=== PATIENT | female | born 1975 | race Caucasian/White ===

== ENCOUNTER 2018-08-06 20:02 | Inpatient (IN) | payer MEDICAID ==
[~2018-08-06] VITALS: Ht 154.9 cm; Wt 69.6 kg
[2018-08-06 20:26] VITALS: Ht 154.9 cm; Wt 69.6 kg
--- NOTE | 2018-08-06 21:06 | NUR ---
PT CAME IN FOR RLQ ABDOMINAL PAIN X 5 DAYS THAT RADIATES TO RIGHT LOWER BACK AND RIGHT PELIVIC REGION. DENIES N/V/D. ABDOMEN SOFT ROUND, TENDER TO PALPATION IN RLQ. PT AWAKE, ALERT, RESPIRATIONS EVEN AND UNLABORED. SAFETY PRECAUTIONS IN PLACE.
--- NOTE | 2018-08-06 21:18 | NUR ---
PT PROVIDED WITH URINE SPECIMEN CUP AND VERBALIZED FOR NEED TO PROVIDE URINE SAMPLE, PATIENT VERBALIZES UNDERSTANDING AND AMBULATED TO RESTROOM TO PROVIDE URINE.
--- NOTE | 2018-08-06 21:35 | NUR ---
URINE DIP SHOWED +3 BLOOD, PATIENT STATES SHE IS ON HER PERIOD, DR. CLARK MADE AWARE OF ABOVE
--- NOTE | 2018-08-06 21:59 | NUR ---
MEDICATED PER EMAR
[2018-08-06 22:07] LABS: UA SPECIFIC GRAVITY >=1.030 (1.005-1.035); microscopic required? YES; urine erythrocyte 3+ (NEGATIVE)
--- NOTE | 2018-08-06 22:28 | NUR ---
PT TAKEN FOR CT SCAN BY TECH
--- NOTE | 2018-08-06 23:15 | NUR ---
PT REMAINS FREE FROM S/S OF DISTRESS. AWAKE, ALERT, RESPIRATIONS EVEN AND UNLABORED. SAFETY PRECAUTIONS IN PLACE
--- NOTE | 2018-08-06 23:44 | NUR ---
ROTO MIXER OPERATOR AT BEDSIDE
[2018-08-07 00:06] LABS: BASOPHIL % 0.5 % (0-2); CARBON DIOXIDE 28.8 mmol/L (21-32); CHLORIDE SERUM 103 mmol/L (98-107); CREATININE SERUM 0.8 mg/dL (0.6-1.0); GFR1 > 60 mL/min; GLUCOSE SERUM 99 mg/dL (74-106); PLATELET COUNT 289 x10^3mcL (130-400); POTASSIUM SERUM 3.9 mmol/L (3.5-5.1); SODIUM SERUM 141 mmol/L (136-145)
[2018-08-07 00:07] LABS: ALBUMIN 3.8 g/dL (3.4-5.0); ALKALINE PHOSPHATASE 104 U/L (46-116); ALT/SGPT 28 U/L (14-59); AMYLASE 91 U/L (25-115); AST/SGOT 17 U/L (15-37); BILIRUBIN TOTAL 0.4 mg/dL (0.20-1.00); LIPASE 206 IU/L (73-393); RED CELL DISTRIBUTION WIDTH 14.8 % (11.5-14.5); TOTAL PROTEIN, SERUM 7.9 g/dL (6.4-8.2)
--- NOTE | 2018-08-07 00:18 | NUR ---
STATUS REMAINS UNCHANGED. RESPIRATIONS EVEN AND UNLABORED. AWAKE, ALERT. SAFETY PRECAUTIONS IN PLACE
--- NOTE | 2018-08-07 01:12 | NUR ---
PT LAYING IN BED. AWAKE, ALERT, RESPIRATIONS EVEN AND UNLABORED. SAFETY PRECAUTIONS IN PLACE
--- NOTE | 2018-08-07 02:28 | NUR ---
PER PROJECT ASSOCIATE BISMARK CERDA COMPLETED ORAL CONTRAST AND WILL BE SCANNED APPROXIMATELY 0400
--- NOTE | 2018-08-07 04:05 | NUR ---
PT TAKEN FOR CT SCAN BY LINUX ADMIN ENGINEER
--- NOTE | 2018-08-07 04:24 | NUR ---
STATUS REMAINS UNCHANGED. RESPIRATIONS EVEN AND UNLABORED. SAFETY PRECAUTIONS IN PLACE
--- NOTE | 2018-08-07 05:11 | NUR ---
DECORATOR MANNEQUIN AT BEDSIDE
--- NOTE | 2018-08-07 07:04 | NUR ---
RECEIEVED REPORT FROM RAQUEL LEE FOR FURTHER CARE OF PATIENT.
--- NOTE | 2018-08-07 07:08 | NUR ---
REPORT GIVEN TO RADHA GARCÍA, ALL QUESTIONS AND CONCERNS WERE ADDRESSED
--- NOTE | 2018-08-07 07:33 | NUR ---
GAVE REPORT TO RAQUEL DE LA GARZA FOR FURTHER CARE OF PATIENT.
[2018-08-07 08:00] LABS: PHOSPHOROUS 3.7 mg/dL (2.5-4.9)
--- NOTE | 2018-08-07 08:01 | NUR ---
PATIENT SENT UP TO FLOOR BY SHADE MA AND RN ACCOMPANIED PATIENT.
[2018-08-07 08:10] LABS: FREE T4 1.17 ng/dL (0.76-1.46); FREE THYROXINE INDEX 3.1 ug/dL (1.4-4.5); T4(THYROXINE) 8.4 ug/dL (4.7-13.3)
--- NOTE | 2018-08-07 08:20 | NUR ---
RECIEVED PT. FROM ED/ VIA NATHAN ,AWAKE,ALERT AND ORIENTED. STILL COMPLAINING OF ABD. PAIN IN RT. LOWER ABD.W/ SCALE OF 7/10 DENEIS NAUSEA/VOMITTING.MADE PT. COMFORTABLE IN BED. ORIENTED TO ROOM AND SURROUNDINGS. CALL LIGHT W/ IN REACH.ROUTINE ADMISSION CARE RENDERED . MADE AWARE OF PT. ADMISSION.WILL CONT. PLAN OF CARE.
[2018-08-07 08:58] VITALS: BP 118/70
[2018-08-07 08:59] LABS: T3 TOTAL 1.3 ng/mL
--- NOTE | 2018-08-07 10:00 | NUR ---
DR. GARCIA HERE AND SEEN THE PT. AND EXPLAINED THE PROCEDURE REGARDING SURGERY AND PT.VERBALIZED UNDERSTANDING OF THE PROCEDURE EXPLAINED.
--- NOTE | 2018-08-07 10:00 | NUR ---
SURGEY LAPAROSCOPIC APPENDECTOMY POSSIBLE OPEN AND PT. SIGNED THE CONSENT.
[2018-08-07 12:00] VITALS: BP 101/53
--- NOTE | 2018-08-07 12:30 | NUR ---
PT.WENT DOWN TO OR VIA MARCIAL
--- NOTE | 2018-08-07 15:00 | NUR ---
RECIEVED PT. FROM OR VIA GUERNEY ,APPEARS DROWSY BUT ARROUSABLE.S/P LAP APPY W/ DERMABOND X 3 SITE IN ABD. DENIES ANY PAIN AT THIS TIME. MADE PT. COMFORTABLE IN BED. CALL LIGHT W/ IN REACH.V/S TAKEN AND RECORDED T- 96.9 HR- 77 RR-16 B/P 113/68 02 SAT 97% RA.
[2018-08-07 16:32] VITALS: BP 118/57
--- NOTE | 2018-08-07 18:30 | NUR ---
PT C/O ABD. PAIN IN INCISIONAL AREA MEDICATED FOR PAIN ORDERED MORPHINE ,MADE COMFORTABLE IN BED. ENCOURAGE TO OOB BUT PT. REFUSED AT THIS TIME .CHECK FOR VOIDING ,IS NOT VOID ,SINCE ARRIVED FROM OR AT 1500 PM.ABD NOT DISTENDED.CALL LIGHT W/ IN REACH.
--- NOTE | 2018-08-07 20:20 | NUR ---
RECEIVED PT IN BED AAOX4 BELARUSIAN SPEAKING ONLY , PT S/P LAP APPY C/O SEVERE SORETHROAT UNABLE TO EAT OR DRINK , DR URIARTE AWARE .LUNG SOUNDS CTA ABD SOFT BS HYPOACTIVE X4 NO VOIDING SINCE SX ABD SOFT BLADDER NOT DISTENDED WILL CON'T TO MONITOR PT , INCISIONS X3 WITH DERMA-BONDS C/D/I , PIV INTACT INFUSING WELL , CALL LIGHT WITHIN PT';S REACH , WILL CON';T TO MONITOR AND ASSIST PT WITH CARE.
[2018-08-07 21:09] VITALS: BP 109/64
--- NOTE | 2018-08-07 21:12 | NUR ---
MEDICATED PT WITH TYLENOL FOR INCISIONAL PAIN OF 3/10 CHLORASEPTIC SPRY FOR SORETHROAT .
--- NOTE | 2018-08-07 22:23 | NUR ---
PT C/O SEVERE LOWER ABD PAIN AND CRAMPING ASSISTED PT TO THE BATHROOM PT VOIDED 1200ML OF [place] URINE ALSO PT STARTED HER MENSTRUAL PERIOD . PT WAS ABLE TO WALK FROM BARTHROOM TO THE DOOR WITH MINIMUN ASSIST. PT DENY SORETHROAT AFTER SPRAY. DENY HEADACHE WELL . WILL CO'T TO MONITOR PT CLOSELY.
--- NOTE | 2018-08-08 01:42 | NUR ---
PT C/O INCUSIONAL PAIN 6/10 MEDICATED WITH NORCO , PT TOLERATED FULL LIQS AT THE MOMENT ., PIV INTACT INFUSING WELL .
--- NOTE | 2018-08-08 05:17 | NUR ---
I HAVE REVIEWED THE DATA COLLECTION BY MARNIE (NAME):AURA CHERRY ENTERED ON (DATE/TIME):08/07 I CONCUR WITH THE DATA AND ANY EXCEPTIONS OR COMMENTS ARE LISTED BELOW:
[2018-08-08 06:04] VITALS: BP 98/55
[2018-08-08 06:15] LABS: BASOPHIL % 0.1 % (0-2); CALCIUM 8.6 mg/dL (8.5-10.1); CHLORIDE SERUM 104 mmol/L (98-107); CREATININE SERUM 0.8 mg/dL (0.6-1.0); GFR1 > 60 mL/min; GLUCOSE SERUM 109 mg/dL (74-106); PLATELET COUNT 266 x10^3mcL (130-400); POTASSIUM SERUM 4.6 mmol/L (3.5-5.1); RED CELL DISTRIBUTION WIDTH 14.5 % (11.5-14.5); SODIUM SERUM 138 mmol/L (136-145)
--- NOTE | 2018-08-08 06:15 | NUR ---
NO CHANGES OF CONDITION NOTED , PT AMBULATED ON THE RIVERA X2 TOLERATED WELL , INCISIONS C/D/I . PIV INTACT INFUSING WELL. CALL LIGHT WITHIN PT'S REACH , WILL CON'T TO MONITOR AND ASSIST PT WITH CARE .
--- NOTE | 2018-08-08 06:45 | NUR ---
PT C/O INCISION PAIN 12/15 NORCO GIVEN ORDERED .
[2018-08-08 08:51] VITALS: BP 124/78
--- NOTE | 2018-08-08 09:22 | NUR ---
ASSUMED CARE OF PATIENT. ALERT AND ORIENTED X4. NO COMPLAINTS OF PAIN OR DISCOMFORT. S1 AND S2 NOTED, RRR. UE AND LE PULSES PALPABLE, QUALITY +2. LUNG SOUNDS CLEAR BILATERALLY, NO ADVENTITIOUS BREATH SOUNDS, ON ROOM AIR. BOWEL SOUNDS PRESENT IN 4 QUADRANTS. VOIDS WITH NO ISSUE. MILD WEAKNESS, AMBUALTING WITH 1 ASSIST. ABDOMINAL INCISIONS X3 WITH DERMABOND OPEN TO ROOM AIR APPEAR CLEAN AND INTACT WITH NO S/SX OF INFECTION. IVF D/C PER ORDERS, IV ON LAC SALINE LOCKED. VSS. ORDERS TO UPGRADE TO NORMAL DIET. CALL LIGHT WITHIN REACH. BED LOCKED AND IN LOWEST POSITION. NONSKID SOCKS IN PLACE.
--- NOTE | 2018-08-08 11:15 | NUR ---
PATIENT RESTING IN ROOM. ABLE TO AMBULATE TO BATHROOM WITH ONE PERSON ASSIST DUE TO ABDOMINAL SORENESS. COMPLAINS OF DISCOMFORT BUT DOES NOT WANT PRN MEDICATION. CALL LIGHT WITHIN REACH.
[2018-08-08] MEDS ORDERED: NORCO1 TA2 PO (11:55)
--- NOTE | 2018-08-08 11:55 | NUR ---
PATIENT COMPLAINING OF 6/10 ABDOMINAL PAIN. NORCO PRN PROVIDED. ALSO COMPLAINING OF SORE THROAT. PHENOL SPRAY PRN PROVIDED. PATIENT COMPLYING WITH INCENTIVE SPIROMETER, APPROXIMATELY 6 TIMES PER HOYR.
[2018-08-08 12:47] VITALS: BP 124/78
--- NOTE | 2018-08-08 13:45 | NUR ---
PATIENT DISCHARGED WITH ALL BELONGINGS. NO APPARENT DISTRESS NOTED UPON LEAVING THE UNIT. LEFT BY WHEELCHAIR AND AT SIDE. IV D/C, REMOVED COMPLETELY. TELE NOT AVAILABLE.
--- NOTE | 2018-08-08 13:45 | NUR ---
WRISTBAND ALSO REMOVED.
== END 2018-08-08 13:48 | disposition home or self-care (01) | DRG 234 ==
LOC: ED 20:02 → MU 08-07 05:20
PROVIDERS: Emergency Medicine; Surgery; ADMIT Internal Medicine
PROC: 0DTJ4ZZ Resection of Appendix, Percutaneous Endoscopic Approach (ICD-10-PCS; principal; 2018-08-07 12:15)
DX: K35.80 Unspecified acute appendicitis (principal); E03.9 Hypothyroidism, unspecified; R73.03 Prediabetes; E78.5 Hyperlipidemia, unspecified; Z68.25 Body mass index [BMI] 25.0-25.9, adult
CPT/HCPCS: 84439; 94150; J0330; J0690; J1170; J1885; J2250; J2270; J2405; J2543; J2704; J2710; J3010; J3490; J7030; J7120; Q9966; Q9967

== ENCOUNTER 2020-06-19 00:15 | Emergency (ER) | payer MEDICAID ==
[~2020-06-19] VITALS: Ht 154.9 cm; Wt 74.8 kg
[~2020-06-19 00:15] MED LIST: NORCO1 TA2 PO
[2020-06-19 00:21] VITALS: Ht 154.9 cm; Wt 74.8 kg
[2020-06-19] MEDS ORDERED: NAPROXEN375 MG PO (01:54)
[2020-06-19] MEDS ORDERED: TRAMADOL HCL50 MG PO (01:54)
[2020-06-19 02:02] VITALS: BP 120/59
== END 2020-06-19 02:02 | disposition home or self-care (01) ==
LOC: ED 00:15
DX: M26.601 Right temporomandibular joint disorder, unspecified (principal)
CPT/HCPCS: J1885